=== PATIENT | female | born 1970 ===

== ENCOUNTER 2020-01-04 10:55 | Emergency (ER) | payer MEDICARE, MEDICAID ==
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
--- NOTE | 2020-01-04 12:12 | RADIOLOGY REPORT (SQ) ---
EXAM DESCRIPTION: KNEE LEFT 4 VIEW IMAGES COMPLETED DATE/TIME: 01/04/2020 11:49 am REASON FOR STUDY: previous knee surgery, pain COMPARISON: None. NUMBER OF VIEWS: Four views. TECHNIQUE: AP, lateral, and both oblique radiographic images acquired of the left knee. LIMITATIONS: None. FINDINGS: MINERALIZATION: Normal. BONES: No acute fracture or dislocation. There is extensive hardware in the proximal tibia JOINT: There is a small joint effusion. SOFT TISSUES: No soft tissue swelling. No radio-opaque foreign body. OTHER: No other significant finding. IMPRESSION: Small joint effusion. Previous ORIF of the proximal tibia. No acute osseous finding. TECHNICAL DOCUMENTATION: JOB ID: [id number] 2010 [employer]- All Rights Reserved Reading location - IP/workstation name: [email or web address]
[2020-01-04 12:36] VITALS: BP 176/113
== END 2020-01-04 12:32 | disposition home or self-care (01) ==
LOC: ER 10:55
DX: M25.562 Pain in left knee (principal); M25.462 Effusion, left knee; F17.200 Nicotine dependence, unspecified, uncomplicated
CPT/HCPCS: 99283